=== PATIENT | male | born 1975 | race African-American/Black ===

== ENCOUNTER 2022-08-20 09:23 | Emergency (ER) | payer OTHER ==
[2022-08-20 09:40] VITALS: TEMP 98.2
[2022-08-20 10:14] LABS: Basophils % (A) 1 %; Eosinophils # (A) 0.4 k/uL (0-0.7); Eosinophils % (A) 8 %; HCT 47.3 % (39.0-53.0); HGB 16.3 gm/dL (13.0-17.5); Lymphocytes # (A) 1.3 k/uL (1.0-4.8); Lymphocytes % (A) 24 %; MCH 31.8 pg (25.0-35.0); MCHC 34.5 g/dL (31.0-37.0); MCV 92.2 fL (80.0-100.0); Mean Platelet Volume 8.2; Monocytes # (A) 0.3 k/uL (0-1.0); Monocytes % (A) 6 %; Neutrophils # (A) 3.2 k/uL (1.3-7.7); Neutrophils % (A) 59 %; Platelet Count 189 k/uL (150-450); RBC 5.14 m/uL (4.30-5.90); RDW 12.3 % (11.5-15.5); WBC 5.4 k/uL (3.8-10.6)
[2022-08-20 10:25] LABS: ALT 25 U/L (4-49); AST 38 U/L (17-59); African American GFR (CKD) >90 (>60 ml/min/1.73 sqM); Albumin 4.3 g/dL (3.5-5.0); Alkaline Phosphatase 118 U/L (38-126); Anion Gap 8 mmol/L; Blood Urea Nitrogen 12 mg/dL (9-20); Calcium 9.7 mg/dL (8.4-10.2); Carbon Dioxide 27 mmol/L (22-30); Chloride 105 mmol/L (98-107); Glucose 108 mg/dL (74-99); Non-African American GFR(CKD) >90 (>60 ml/min/1.73 sqM); Potassium 4.3 mmol/L (3.5-5.1); Sodium 140 mmol/L (137-145); Total Bilirubin 1.2 mg/dL (0.2-1.3); Total Protein 8.2 g/dL (6.3-8.2)
[2022-08-20 10:27] LABS: INR 1.1 (<1.2); Partial Thromboplastin Time 26.9 sec (22.0-30.0); Prothrombin Time 11.2 sec (9.0-12.0)
--- NOTE | 2022-08-20 10:36 | XR ---
EXAMINATION TYPE: XR chest 2V DATE OF EXAM: 08/20/2022 10:11 AM COMPARISON: None TECHNIQUE: XR chest 2V Frontal and lateral views of the chest. CLINICAL INDICATION:Male, 46 years old with history of Chest Pain; FINDINGS: Lungs/Pleura: Scattered subtle reticular and hazy opacities. No evidence of pneumothorax, focal conso lidation or pleural effusion. Pulmonary vascularity: Unremarkable. Heart/mediastinum: Cardiomediastinal silhouette is unremarkable. Musculoskeletal: No acute osseous pathology. IMPRESSION: Subtle scattered opacities which may represent an atypical pneumonia.
--- NOTE | 2022-08-20 10:58 | ED ---
Chest Pain HPI - General Chief Complaint: Chest Pain Stated Complaint: chest pain Time Seen by Provider: 08/20/22 09:29 Source: patient, RN notes reviewed Mode of arrival: ambulatory Limitations: no limitations - History of Present Illness Initial Comments: 46-year-old male presents emergency Department from [facility] for evaluation of palpitations. Patient states he felt like he couldn't feel his heart skipping or pumping harder. Patient states he had no chest pain. He doesn't at days been trying to do a workup at [facility]. Patient is at [facility] for heroin abuse denies any prior cardiac disease the does have history of hypertension takes medications for. Denies hyperlipidemia or diabetes. Denies any head neck back chest pain are the usual. - Related Data Home Medications Medication Instructions Recorded Confirmed Acetaminophen Tab [Tylenol] 650 mg PO Q4H PRN 08/20/22 08/20/22 Albuterol Inhaler [Ventolin Hfa 2 puff INHALATION RT-QID PRN 08/20/22 08/20/22 Inhaler] Calcium/Magnesium/Zinc/Vitamin D 1 tab PO TID PRN 08/20/22 08/20/22 334/134/5mg Chlorpheniramine Maleate 4 mg PO Q4H PRN 08/20/22 08/20/22 [Chlor-Trimeton] Darunavir/Cob/Emtri/Tenof Alaf 1 tab PO DAILY 08/20/22 08/20/22 [Symtuza 554-686-332-10 mg Tab] Fluticasone Nasal [place] [Flonase 2 spr EA NOSTRIL DAILY 08/20/22 08/20/22 Nasal [place]] Furosemide [Lasix] 20 mg PO DAILY PRN 08/20/22 08/20/22 Hyoscyamine Sulfate [Levsin] 0.125 mg PO QID PRN 08/20/22 08/20/22 Ibuprofen [Motrin] 600 mg PO Q6H PRN 08/20/22 08/20/22 Loperamide HCl [Imodium A-D] 4 mg PO QID PRN 08/20/22 08/20/22 Losartan [Cozaar] 50 mg PO DAILY 08/20/22 08/20/22 Milnacipran HCl [Savella] 50 mg PO BID 08/20/22 08/20/22 Multivitamins, Thera [Multivitamin 1 tab PO DAILY 08/20/22 08/20/22 (formulary)] Testosterone Cypionate 200 mg IM Q30D 08/20/22 08/20/22 [Depo-Testosterone] Thiamine [Vitamin B-1] 100 mg PO DAILY 08/20/22 08/20/22 amLODIPine 10 mg PO DAILY 08/20/22 08/20/22 cloNIDine HCL [Catapres] 0.1 mg PO Q4H PRN 08/20/22 08/20/22 ondansetron HCL [Zofran] 8 mg PO Q6H PRN 08/20/22 08/20/22 traZODone HCL [Desyrel] 50 - 100 mg PO HS PRN 08/20/22 08/20/22 Allergies Allergy/AdvReac Type Severity Reaction Status Date / Time No Known Allergies Allergy Verified 08/20/22 11:40 Review of Systems ROS Statement: Those systems with pertinent positive or pertinent negative responses have been documented in the HPI. ROS Other: All systems not noted in ROS Statement are negative. EKG Findings - EKG Comments: EKG Findings:: 9:26 sinus rhythm rate of 69 [place] 172 QRS 104 QT /QTC 420/446 - EKG Results: EKG: interpreted by TIMBO Past Medical History Past Medical History: Hypertension History of Any Multi-Drug Resistant Organisms: None Reported Past Surgical History: Back Surgery Smoking Status: Unknown if ever smoked Past Alcohol Use History: None Reported Past Drug Use History: Cocaine, Marijuana General Exam Limitations: no limitations General appearance: alert, in no apparent distress Head exam: Present: atraumatic, normocephalic, normal inspection Eye exam: Present: normal appearance, PERRL, EOMI. Absent: scleral icterus, conjunctival injection, periorbital swelling ENT exam: Present: normal exam, normal oropharynx, mucous membranes moist Neck exam: Present: normal inspection, full ROM. Absent: tenderness, meningismus, lymphadenopathy Respiratory exam: Present: normal lung sounds bilaterally. Absent: respiratory distress, wheezes, rales, rhonchi, stridor Cardiovascular Exam: Present: regular rate, normal rhythm, normal heart sounds. Absent: systolic murmur, diastolic murmur, rubs, gallop, clicks Course Vital Signs 08/20/22 08/20/22 09:37 11:42 Temperature 98.2 F 98.2 F Pulse Rate 71 73 Respiratory 18 16 Rate Blood Pressure 135/87 125/84 O2 Sat by Pulse 96 97 Oximetry Chest Pain MDM - MDM Was pt. sent in by a medical professional or institution (, JACINDA, FACILITIES AND GROUNDS DIRECTOR, urgent care, hospital, or senior care...) When possible be specific @ -[facility] Did you speak to anyone other than the patient for history (EMS, parent, family, police, friend...)? What history was obtained from this source @ -No Did you review nursing and triage notes (agree or disagree)? Why? @ -I reviewed and agree with nursing and triage notes Were old charts reviewed (outside hosp., previous admission, EMS record, old EKG, old radiological studies, urgent care reports/EKG's, senior care records)? Report findings @ -No old charts were reviewed Differential Diagnosis (chest pain, altered mental status, abdominal pain women, abdominal pain men, vaginal bleeding, weakness, fever, dyspnea, syncope, headache, dizziness, GI bleed, back pain, seizure, CVA, palpatations, mental health, musculoskeletal)? @ -Differential Chest Pain: Stable Angina, Unstable Angina, STEMI, NSTEMI Aortic Dissection, Pneumothorax, Musculoskeletal, Esophageal Spasm GERD, Cholecystitis, Pancreatitis, Zoster, this is not meant to be an all-inclusive list. le EKG interpreted by me (3pts min.). @ -As above X-rays interpreted by me (1pt min.). @ -Chest x-ray shows no acute cardiopulmonary process, no infiltrate or pneumothorax CT interpreted by me (1pt min.). @ -None done U/S interpreted by me (1pt. min.). @ -None done What testing was considered but not performed or refused? (CT, X-rays, U/S, labs)? Why? @ -None What meds were considered but not given or refused? Why? @ -None Did you discuss the management of the patient with other professionals (professionals i.e. JACINDA Craig, FACILITIES AND GROUNDS DIRECTOR, lab, RT, psych nurse, social service agency director, lard maker, teacher, interface control officer, counseling case manager)? Give summary @ -No Was smoking cessation discussed for >3mins.? @ -No Was critical care preformed (if so, how long)? @ -No Were there social determinants of health that impacted care today? How? (Homelessness, low income, unemployed, alcoholism, drug addiction, transportation, low edu. Level, literacy, decrease access to med. care, longterm, rehab)? @ -No Was there de-escalation of care discussed even if they declined (Discuss DNR or withdrawal of care, Hospice)? DNR status @ -No What co-morbidities impacted this encounter? (DM, HTN, Smoking, COPD, CAD, Cancer, CVA, ARF, Chemo, Hep., AIDS, mental health diagnosis, sleep apnea, morbid obesity)? @ -Hypertension Was patient admitted / discharged? Hospital course, mention meds given and route, prescriptions, significant lab abnormalities, going to OR and other pertinent info. @ -Discharge patient is having complaints of palpitations is asymptomatic. Negative. He denies chest pain. Patient for admission patient feels comfortable with discharge she is symptom-free. Undiagnosed new problem with uncertain prognosis? @ -No Drug Therapy requiring intensive monitoring for toxicity (Heparin, Nitro, Insulin, Cardizem)? @ -No Were any procedures done? @ -No Diagnosis/symptom? @ -Palpitations Acute, or Chronic, or Acute on Chronic? @ -Acute Uncomplicated (without systemic symptoms) or Complicated (systemic symptoms)? @ -Uncomplicated Side effects of treatment? @ -No Exacerbation, Progression, or Severe Exacerbation? @ -No Poses a threat to life or bodily function? How? (Chest pain, [place], [place], pneumonia, PE, COPD, DKA, ARF, appy, cholecystitis, CVA, Diverticulitis, Homicidal, Suicidal, threat to staff... and all critical care pts) @ -No Disposition Clinical Impression: Palpitations Disposition: HOME SELF-CARE Condition: Stable Instructions (If sedation given, give patient instructions): Chest Pain (ED) Additional Instructions: Please return to the Emergency Department if symptoms worsen or any other concerns. Is patient prescribed a controlled substance at d/c from ED?: No Referrals: Nonstaff,Physician [Primary Care Provider] - 1-2 days Time of Disposition: 10:58
[2022-08-20 11:44] VITALS: BP 125/84; PULSE 73; RESP 16
== END 2022-08-20 11:44 | disposition home or self-care (01) ==
LOC: EC 09:23
DX: R00.2 Palpitations (principal); I10 Essential (primary) hypertension; Z79.899 Other long term (current) drug therapy
CPT/HCPCS: 36415; 71046; 80053; 83735; 84484; 85025; 85610; 85730; 93005; 99285